=== PATIENT | female | born 1940 | race Caucasian/White ===

== ENCOUNTER → 2017-09-04 | Outpatient (CLI) | payer OTHER ==
[~2017-09-04] MED LIST: FUROSEMIDE 40 MG/4 ML VIAL ONE; IOPAMIDOL (ISOVUE-370) 150 ML BTL IV ONE; IOTHALAMATE MEG (CYSTO-CONRAY II) 250 ML VIAL BLADIN ONE
== END ==
LOC: FIMAGING 12:30
PROVIDERS: ATTEND Urology
DX: Z03.89 Encounter for observation for other suspected diseases and conditions ruled out (principal)
CPT/HCPCS: 74455; 78708; A9562; J1940; Q9961; Q9967

== ENCOUNTER → 2017-09-16 | Outpatient (CLI) | payer OTHER ==
[~2017-09-16] MED LIST changes: -FUROSEMIDE 40 MG/4 ML VIAL ONE; +IOPAMIDOL (ISOVUE-300) 100 ML BTL ONE; -IOPAMIDOL (ISOVUE-370) 150 ML BTL IV ONE; -IOTHALAMATE MEG (CYSTO-CONRAY II) 250 ML VIAL BLADIN ONE
== END ==
LOC: FIMAGING 11:31
PROVIDERS: ATTEND Urology
DX: N13.1 Hydronephrosis with ureteral stricture, not elsewhere classified (principal); K87 Disorders of gallbladder, biliary tract and pancreas in diseases classified elsewhere; J98.6 Disorders of diaphragm; N32.89 Other specified disorders of bladder; Z90.710 Acquired absence of both cervix and uterus; Z90.89 Acquired absence of other organs
CPT/HCPCS: 74178; Q9967